=== PATIENT | male | born 1955 | race Hispanic/Latino ===

== ENCOUNTER 2017-01-04 15:43 | Inpatient (IN) | payer OTHER ==
[2017-01-04 15:50] LABS: Hematocrit 46.8 % (35.5-45.6); Hemoglobin 15.9 gm/dl (11.8-15.2); Mean Corpuscular HGB Conc 34 % (32-34); Mean Corpuscular Hemoglobin 31 pg (28-32); Mean Corpuscular Volume 90 fl (84-94); Platelet Count 146 K/mm3 (140-440); Red Cell Distribution Width 13.5 % (13.2-15.2); White Blood Count 10.2 K/mm3 (4.5-11.0)
--- NOTE | 2017-01-04 15:50 | Emergency Department Report ---
ED Neuro Deficit HPI - General Chief Complaint: Neuro Symptoms/Deficit Stated Complaint: POSS CVA Time Seen by Provider: 01/04/17 15:49 Source: patient, EMS (ems notes not available at time of chart dictation) Limitations: Physical Limitation - History of Present Illness Initial Comments: This is a 61-year-old male. He is previously unknown to me. The patient reports a past medical history of "blood clots." The patient is brought to the hospital by EMS as a possible code stroke. Patient complains of slurred speech , left-sided facial droop. The patient indicated the symptoms started 2 days ago. He indicates that they were intermittent. He then indicates that the symptoms became constant at 11:00 AM. He denies headache, neck pain, chest pain , abdominal pain, shortness of breath, irritative and obstructive urinary symptoms. The patient presented to the ER at 345, within 4.5 hours after symptom onset. Therefore, he was not a TPA candidate. An emergent CT scan of the brain was negative for acute findings. The patient had an emergent CT angiogram of the head and neck, and this was transmitted to [facility] PACs, and interpreted by their stroke neurologist, Dr. Joaquin Orozco. His preliminary interpretation was that the CT scan did not demonstrate any large clot or thrombus, that there may be a right-sided stenosis. He indicated that based on the patient's CAT scan findings, there is no indication to transfer the patient for endovascular intervention. The patient's CT scan is currently pending formal interpretation by radiology, because of inclement weather at this time, there was a power surge, and this resulted in delaying transmission of the CT scan images to the off site radiology interpretation health outreach worker. Consulting neurology recommended aspirin. Patient was found to be in new onset A. fib /flutter which he indicates is new. Case was discussed with the Hospital physician, Dr. Leung, who accepts the patient to his service for presumed stroke and presumed new onset A. fib. -: Sudden, hour(s) Location: left face Presenting Symptoms: Present: Facial Droop/Numbness. Absent: Weak/Paralyzed One Side History of same: Yes Place: home Severity: moderate Quality: weak Improves With: none Worsens With: none On Anticoagulants: No Context: sudden onset Associated Symptoms: denies: confusion, chest pain, cough, diaphoresis, loss of appetite, malise, nausea/vomiting, vertigo, shortness of breath, syncope, weakness - Related Data Home Medications: Home Medications Medication Instructions Recorded Confirmed Last Taken No Known Home Medications [No 01/04/17 01/04/17 Unknown Reported Home Medications] Allergies/Adverse Reactions: Allergies Allergy/AdvReac Type Severity Reaction Status Date / Time No Known Allergies Allergy Verified 01/04/17 15:43 ED Review of Systems ROS: Stated complaint: POSS CVA Other details as noted in HPI Constitutional: denies: fever, malaise Eyes: denies: vision change ENT: denies: epistaxis Respiratory: denies: cough Cardiovascular: denies: chest pain Gastrointestinal: denies: abdominal pain Genitourinary: denies: dysuria Musculoskeletal: denies: back pain Skin: denies: lesions Neurological: weakness ED Past Medical Hx - Medications Home Medications: Home Medications Medication Instructions Recorded Confirmed Last Taken Type No Known Home Medications [No 01/04/17 01/04/17 Unknown History Reported Home Medications] ED Neuro Physical Exam - General General appearance: alert, in no apparent distress Suspected Stroke: Yes - Head Head exam: Present: atraumatic, normocephalic - Eye Eye exam: Present: normal appearance, EOMI, other (visual acuity intact to finger counting, color perception, reading at a close distance). Absent: nystagmus - ENT ENT exam: Present: normal exam, normal orophraynx, mucous membranes moist, normal external ear exam, other (there is a left-sided facial droop noted) - Neck Neck exam: Present: normal inspection, full ROM - Respiratory Respiratory exam: Present: normal lung sounds bilaterally. Absent: respiratory distress, wheezes, rales, rhonchi, stridor, chest wall tenderness - Cardiovascular Cardiovascular Exam: Present: regular rate, irregular rhythm, normal heart sounds. Absent: systolic murmur, diastolic murmur, rubs, gallop - GI/Abdominal GI/Abdominal exam: Present: soft, normal bowel sounds. Absent: distended, tenderness, guarding, rebound, rigid, pulsatile mass - Rectal Rectal exam: Present: deferred - Extremities Exam Extremities exam: Present: normal inspection, full ROM, normal capillary refill. Absent: pedal edema, joint swelling, calf tenderness - Back Exam Back exam: Present: normal inspection, full ROM. Absent: tenderness, CVA tenderness (R), CVA tenderness (L), muscle spasm, paraspinal tenderness, vertebral tenderness - Neurological Exam Neurological exam: Present: alert, oriented X3, other (there is left-sided facial droop. Facial sensation is intact to light touch in the bilateral V1, V2 , V3 distribution. Extraocular movements are intact bilaterally. The tongue deviates to the left.). Absent: motor sensory deficit (there is 5 out of 5 strength in bilateral upper and lower extremity is. Sensation is intact to light touch in the bilateral upper and lower extremities.) - NIHSS Assessment Interval: Baseline 1a. Level of Consciousness: alert 1b. LOC Questions: answers correctly 1c. LOC Commands: performs tasks correctly 2. Best Gaze: normal 3. Visual: no visual loss 4. Facial Palsy: partial paralysis 5b. Motor Arm Right: no drift 5a. Motor Arm Left: no drift 6a. Motor Leg Left: no drift 6b. Motor Leg Right: no drift 7. Limb Ataxia: absent 8. Sensory: normal 9. Best Language: no aphasia 10. Dysarthria: normal 11. Extinction/Inattention: no abnormality Total Score: 2 Stroke Severity: Minor Stroke - Psychiatric Psychiatric exam: Present: normal affect, normal mood - Skin Skin exam: Present: warm, dry, intact, normal color. Absent: rash ED Course Vital Signs 01/04/17 01/04/17 01/04/17 15:43 16:56 18:40 Temperature 98.8 F 97.6 F Pulse Rate 90 80 91 H Respiratory 16 20 20 Rate Blood Pressure 156/94 Blood Pressure 146/87 143/98 [Right] O2 Sat by Pulse 96 100 96 Oximetry - Reevaluation(s) Reevaluation #1: 01/04/17 19:26 CT angiogram of the brain and neck negative. - Lab Data Result diagrams: 01/04/17 15:40 01/04/17 15:40 Lab Results 01/04/17 01/04/17 01/04/17 Range/Units 15:40 15:40 15:40 WBC 10.2 (4.5-11.0) K/mm3 RBC 5.20 H (3.65-5.03) M/mm3 Hgb 15.9 H (11.8-15.2) gm/dl Hct 46.8 H (35.5-45.6) % MCV 90 (84-94) fl MCH 31 (28-32) pg MCHC 34 (32-34) % RDW 13.5 (13.2-15.2) % Plt Count 146 (140-440) K/mm3 Add Manual Diff Complete Total Counted 100 Seg Neuts % (Manual) 66.0 (40.0-70.0) % Band Neutrophils % 6.0 % Lymphocytes % (Manual) 19.0 (13.4-35.0) % Reactive Lymphs % (Man) 1.0 % Monocytes % (Manual) 7.0 (0.0-7.3) % Eosinophils % (Manual) 1.0 (0.0-4.3) % Basophils % (Manual) 0 (0.0-1.8) % Metamyelocytes % 0 % Myelocytes % 0 % Promyelocytes % 0 % Blast Cells % 0 % Nucleated RBC % Not Reportable Seg Neutrophils # Man 6.7 (1.8-7.7) K/mm3 Band Neutrophils # 0.6 K/mm3 Lymphocytes # (Manual) 1.9 (1.2-5.4) K/mm3 Abs React Lymphs (Man) 0.1 K/mm3 Monocytes # (Manual) 0.7 (0.0-0.8) K/mm3 Eosinophils # (Manual) 0.1 (0.0-0.4) K/mm3 Basophils # (Manual) 0.0 (0.0-0.1) K/mm3 Metamyelocytes # 0.0 K/mm3 Myelocytes # 0.0 K/mm3 Promyelocytes # 0.0 K/mm3 Blast Cells # 0.0 K/mm3 WBC Morphology Not Reportable Hypersegmented Neuts Not Reportable Hyposegmented Neuts Not Reportable Hypogranular Neuts Not Reportable Smudge Cells Not Reportable Toxic Granulation Not Reportable Toxic Vacuolation Not Reportable Dohle Bodies Not Reportable Pelger-Huet Anomaly Not Reportable Aleksandar Rods Not Reportable Platelet Estimate Consistent w auto Clumped Platelets Not Reportable Plt Clumps, EDTA Not Reportable Large Platelets Not Reportable Giant Platelets Not Reportable Platelet Satelliting Not Reportable Plt Morphology Comment Not Reportable RBC Morphology Normal Dimorphic RBCs Not Reportable Polychromasia Not Reportable Hypochromasia Not Reportable Poikilocytosis Not Reportable Anisocytosis Not Reportable Microcytosis Not Reportable Macrocytosis Not Reportable Spherocytes Not Reportable Pappenheimer Bodies Not Reportable Sickle Cells Not Reportable Target Cells Not Reportable Tear Drop Cells Not Reportable Ovalocytes Not Reportable Helmet Cells Not Reportable Mccain-Hyde Bodies Not Reportable [place] Rings Not Reportable Tess Cells Not Reportable Bite Cells Not Reportable Crenated Cell Not Reportable Elliptocytes Not Reportable Acanthocytes (Spur) Not Reportable Rouleaux Not Reportable Hemoglobin C Crystals Not Reportable Schistocytes Not Reportable Malaria parasites Not Reportable [place] Bodies Not Reportable Hem Pathologist Commnt No PT 13.7 (12.2-14.9) Sec. INR 1.00 (0.87-1.13) APTT 26.4 (24.2-36.6) Sec. Thrombin Time (15.1-19.6) Sec. Sodium 138 (137-145) mmol/L Potassium 3.9 (3.6-5.0) mmol/L Chloride 98.8 (98-107) mmol/L Carbon Dioxide 26 (22-30) mmol/L Anion Gap 17 mmol/L BUN 16 (9-20) mg/dL Creatinine 0.7 L (0.8-1.5) mg/dL Estimated GFR > 60 ml/min BUN/Creatinine Ratio 22.85 % Glucose 99 (75-100) mg/dL POC Glucose (70-105) Calcium 9.0 (8.4-10.2) mg/dL Troponin T < 0.010 (0.00-0.029) ng/mL 01/04/17 01/04/17 Range/Units 15:40 15:42 WBC (4.5-11.0) K/mm3 RBC (3.65-5.03) M/mm3 Hgb (11.8-15.2) gm/dl Hct (35.5-45.6) % MCV (84-94) fl MCH (28-32) pg MCHC (32-34) % RDW (13.2-15.2) % Plt Count (140-440) K/mm3 Add Manual Diff Total Counted Seg Neuts % (Manual) (40.0-70.0) % Band Neutrophils % % Lymphocytes % (Manual) (13.4-35.0) % Reactive Lymphs % (Man) % Monocytes % (Manual) (0.0-7.3) % Eosinophils % (Manual) (0.0-4.3) % Basophils % (Manual) (0.0-1.8) % Metamyelocytes % % Myelocytes % % Promyelocytes % % Blast Cells % % Nucleated RBC % Seg Neutrophils # Man (1.8-7.7) K/mm3 Band Neutrophils # K/mm3 Lymphocytes # (Manual) (1.2-5.4) K/mm3 Abs React Lymphs (Man) K/mm3 Monocytes # (Manual) (0.0-0.8) K/mm3 Eosinophils # (Manual) (0.0-0.4) K/mm3 Basophils # (Manual) (0.0-0.1) K/mm3 Metamyelocytes # K/mm3 Myelocytes # K/mm3 Promyelocytes # K/mm3 Blast Cells # K/mm3 WBC Morphology Hypersegmented Neuts Hyposegmented Neuts Hypogranular Neuts Smudge Cells Toxic Granulation Toxic Vacuolation Dohle Bodies Pelger-Huet Anomaly Aleksandar Rods Platelet Estimate Clumped Platelets Plt Clumps, EDTA Large Platelets Giant Platelets Platelet Satelliting Plt Morphology Comment RBC Morphology Dimorphic RBCs Polychromasia Hypochromasia Poikilocytosis Anisocytosis Microcytosis Macrocytosis Spherocytes Pappenheimer Bodies Sickle Cells Target Cells Tear Drop Cells Ovalocytes Helmet Cells Mccain-Hyde Bodies [place] Cells Bite Cells Crenated Cell Elliptocytes Acanthocytes (Spur) Rouleaux Hemoglobin C Crystals Schistocytes Malaria parasites Bentley Bodies Hem Pathologist Commnt PT (12.2-14.9) Sec. INR (0.87-1.13) APTT (24.2-36.6) Sec. Thrombin Time 16.3 (15.1-19.6) Sec. Sodium (137-145) mmol/L Potassium (3.6-5.0) mmol/L Chloride (98-107) mmol/L Carbon Dioxide (22-30) mmol/L Anion Gap mmol/L BUN (9-20) mg/dL Creatinine (0.8-1.5) mg/dL Estimated GFR ml/min BUN/Creatinine Ratio % Glucose (75-100) mg/dL POC Glucose 92 (70-105) Calcium (8.4-10.2) mg/dL Troponin T (0.00-0.029) ng/mL Vital Signs 01/04/17 01/04/17 15:43 16:56 Temperature 98.8 F Pulse Rate 90 80 Respiratory 16 20 Rate Blood Pressure 156/94 Blood Pressure 146/87 [Right] O2 Sat by Pulse 96 100 Oximetry - EKG Data -: EKG Interpreted by Me 01/04/17 18:55 77 bpm, atrial fibrillation, normal axis, QTC 452 ms, abnormal EKG, not morphologically consistent with stemi - Radiology Data Radiology results: pending, report reviewed Noncontrast CT scan of the brain is negative. CT angiogram of the brain and neck are pending Critical care attestation.: If time is entered above; I have spent that time in minutes in the direct care of this critically ill patient, excluding procedure time. ED Disposition Clinical Impression: Atrial fibrillation, CVA (cerebral vascular accident) Disposition: OP ADMIT IP TO THIS HOSP Is pt being admited?: Yes Does the pt Need Aspirin: Yes Condition: Stable Referrals: PRIMARY CARE, [Primary Care Provider] - 3-5 Days
--- NOTE | 2017-01-04 15:59 | Cat Scan Report ---
Cranial CT without contrast. History: Acute stroke protocol. Findings: There is no evidence of acute hemorrhage or infarct. The ventricles are normal in size and contour. The posterior fossa is normal. There are no masses or extra-axial collections. The calvarium is normal. Impression: No acute findings. Comment: These findings were given by telephone to Dr. Levine at 3:50 PM on January 04, 2017.
[2017-01-04 16:02] LABS: Partial Thromboplastin Time 26.4 Sec. (24.2-36.6)
[2017-01-04 16:03] LABS: Anion Gap 17 mmol/L; BUN/Creatinine Ratio 22.85; Blood Urea Nitrogen 16 mg/dL (9-20); Carbon Dioxide 26 mmol/L (22-30); Chloride 98.8 mmol/L (98-107); Glucose 99 mg/dL (75-100); Potassium 3.9 mmol/L (3.6-5.0); Sodium 138 mmol/L (137-145)
[2017-01-04] MEDS ORDERED: NACL 0.9% 250ML 250 ML IV ONE (16:05)
[2017-01-04] MEDS ORDERED: NACL ONE (16:17)
[2017-01-04 17:18] LABS: Basophils % (Manual) 0 % (0.0-1.8); Blastocytes % (Manual) 0 %
[2017-01-04 17:19] LABS: Diff Status Complete; Platelet Estimate Consistent w Auto; RBC Morphology Normal
--- NOTE | 2017-01-04 18:12 | Admit Criteria Form ---
Admission Criteria Documentation: TELEMETRY CARE Telemetry Admission Guidelines (Place 'X' for any and all applicable criteria): Admission to telemetry [A] may be indicated for ANY ONE of the following(1)(2)(3 )(4)(5): [ ]I. Cardiac disease, including ANY ONE of the following (9)(10)(11)(12)(13 ): [ ]a) Postacute AL [ ]b) Low-risk patients with ST-segment elevation AL who have undergone successful percutaneous coronary intervention [ ]c) Unstable angina [ ]d) Suspected AL (until it is ruled out) [ ]e) Post cardiac surgery (first 48 to 72 hours unless complications occur) [ ]f) Acute arrhythmias (including significant tachycardia or bradycardia) [B] [ ]g) Firing of an implantable cardioverter defibrillator [C] [ ]h) Suspected pacemaker or implantable cardioverter defibrillator malfunction (10) [ ]i) New administration or adjustment of an antiarrhythmic drug [D ] [ ]j) Child admitted for acute congestive heart failure [ ]j) Long QT syndrome [ ]k) Advanced heart block (eg, second-degree Mobitz type II, third- degree heart block) [ ]l) Acute myocarditis or pericarditis [ ]m) Short-term (ambulatory or inpatient) monitoring after a cardiac procedure as indicated by ANY ONE of the following [E]: [ ]i) Electrophysiologic studies [ ]ii) Percutaneous coronary intervention with stent placement [ ]iii) Pacemaker placement with cardiac conduction defect [ ]iv) Implantable cardiac defibrillator placement [ ]II. Drug overdose or poisoning with substance that causes arrhythmias or QT prolongation (eg, phenothiazines, sympathomimetic agents, cyclic antidepressants, digitalis, antiarrhythmic drugs)(15) [ ]III. Short-term (ambulatory or inpatient) monitoring after therapeutic or diagnostic procedure requiring conscious sedation or anesthesia (eg, endoscopy, elective cardioversion) [ X]IV. Acute cerebrovascular even[F](18) [ ]V. Massive blood transfusion (eg, at least 10 units of packed red blood cells in 24 hours) [ ]. Variceal bleeding after endoscopy, sclerotherapy, or IV vasopressin [ ]VII. Uncorrected electrolyte abnormalities associated with an increased risk of dangerous arrhythmia [G]; examples include [ ]a) Hyperkalemia with attributable ECG changes [ ]b) Potassium greater than 6.5 mmol/L (mEq/L) in a patient without history of chronic renal disease [ ]c) Prolonged QT attributed to hypokalemia, hypomagnesemia, or hypocalcemia [ ]VIII.Unexplained syncope or other neurologic event suspected of being due to arrhythmia due to a finding that increases risk; examples include(19)(20)(21): [ ]a) High-risk ECG findings (eg, bifascicular block, bradycardia, abnormal QT interval, ventricular pre- excitation) [ ]b) History of previous syncope due to arrhythmia [ ]c) Abnormal ventricular function (eg, reduced ejection fraction ) [ ]d) Exertional or supine syncope [ ]e) Concerning syncope characteristics (eg, sudden loss of consciousness without prodrome) [ ]f) Family history of sudden [ ]g) Use of arrhythmogenic medication [ ]h) Suspected cardiac ischemia [ ]i) Known channelopathy (eg, long QT syndrome, Brugada syndrome, or catecholaminergic paroxysmal ventricular tachycardia) [ ]j) Known structural heart disease (eg, hypertrophic cardiomyopathy , severe valvular disease) [ ]k) Palpitations preceding syncope The original [employer] content created by [employer] has been revised. The portions of the content which have been revised are identified through the use of italic text or in bold, and [employer] has neither reviewed nor approved the modified material. All other unmodified content is copyright [employer]. Please see references footnoted in the original [employer] edition 2016 Admission Criteria Met: Yes
[2017-01-04] MEDS ORDERED: PHENERGAN PR PRN (18:45)
[2017-01-04] MEDS ORDERED: TYLENOL PO PRN (18:45)
[2017-01-04] MEDS ORDERED: MILK OF MAGNESIA PO PRN (18:45)
[2017-01-04] MEDS ORDERED: DULCOLAX PR PRN (18:45)
[2017-01-04] MEDS ORDERED: ZOFRAN IV PRN (18:45)
[2017-01-04] MEDS ORDERED: REGLAN PO PRN (18:45)
[2017-01-04] MEDS ORDERED: MORPHINE IV PRN (18:45)
[2017-01-04] MEDS ORDERED: SODIUM CHLORIDE FLUSH SYRINGE 10 ML IV PRN (18:45)
[2017-01-04] MEDS ORDERED: BABY ASPIRIN PO ONE (18:56)
--- NOTE | 2017-01-04 19:03 | History and Physical Report ---
History of Present Illness Date of examination: 01/04/17 Chief complaint: Left fascial droop History of present illness: 61-year-old male with past medical history significant for PE [20 years ago] presented to the emergency department for the complaints of left fascia droop, drooling for the last 2-3 days. The patient said the pressure droop is on and off, initially get better but since yesterday getting worse and he started to drool when he eats. The patient denied headache, weakness of other parts of his body, seizure-like activities. Patient denied chest pain, fever, chills. While in the emergency department EKG was done and was significant for A. fib which is rate controlled. CT head showed no acute intracranial abnormality. Per Dr wells CTA was done and the image was sent to [facility] and they said the patient is a need endovascular intervention or TPA and they went the patient to be managed here. CT reading by radiologist is pending. REVIEW OF SYSTEMS: GENERAL: no weight change, no fatigue, no fever HEAD: no head ache EYES: no blurry vision, no acute visual loss EARS: no hearing loss, no discharge, no earache NOSE: no stuffiness, no sneezing, no discharge MOUTH, THROAT AND NECK: no bleeding gums, no sore throat, no swollen neck CARDIAC: no palpitations, no dyspnea on exertion, no orthopnea, no PND, no edema , no chest pain RESPIRATORY: no shortness of breath, no wheeze, no cough, no sputum, no hemoptysis, no asthma GI: no decreased appetite, no nausea, no vomiting, no dysphagia, no diarrhea, no constipation, no abdominal pain URINARY: no change in frequency, no urgency, no polyuria, no hematuria, no incontinence MUSCULOSKELETAL: no muscle weakness, no pain, no joint stiffness NEUROLOGIC: no loss of sensation/numbness, no tingling, no tremors HEMATOLOGIC: no anemia, no easy bruising SKIN: no rashes ENDOCRINE: no heat/cold intolerance, no polyuria, no polydipsia, no thyroid problems, no diabetes PSYCHIATRIC: no anxiety, no depression, no suicidal ideations Past History Past Medical History: pulmonary embolism Past Surgical History: Other (Shaq filter Placement) Social history: smoking (Smokes cigarettes one and half pack a day), full code. denies: alcohol abuse, prescription drug abuse, IV drug use Family history: no significant family history Medications and Allergies Allergies Allergy/AdvReac Type Severity Reaction Status Date / Time No Known Allergies Allergy Verified 01/04/17 15:43 Home Medications Medication Instructions Recorded Confirmed Last Taken Type No Known Home Medications [No 01/04/17 01/04/17 Unknown History Reported Home Medications] Active Meds: Active Medications Acetaminophen (Tylenol) 650 mg PO Q4H PRN PRN Reason: Pain, Mild (1-3) Aspirin (Aspirin) 325 mg PO QDAY [facility] Bisacodyl (Dulcolax) 10 mg MS QDAY PRN PRN Reason: Constipation Docusate Sodium (Colace) 100 mg PO BID [facility] Famotidine (Pepcid) 20 mg PO BID [facility] Sodium Chloride (Nacl 0.9% 1000 Ml) 1,000 mls @ 100 mls/hr IV DIRECT [facility] Magnesium Hydroxide (Milk Of Magnesia) 30 ml PO Q4H PRN PRN Reason: Constipation Metoclopramide HCl (Reglan) 10 mg PO Q6H PRN PRN Reason: Nausea And Vomiting Morphine Sulfate (Morphine) 2 mg IV Q4H PRN PRN Reason: Pain, Moderate (4-6) Ondansetron HCl (Zofran) 4 mg IV Q8H PRN PRN Reason: N/V unrelieved by Reglan Promethazine HCl (Phenergan) 25 mg MS Q6H PRN PRN Reason: Nausea And Vomiting Simvastatin (Zocor) 20 mg PO QHS [facility] Sodium Chloride (Sodium Chloride Flush Syringe 10 Ml) 10 ml IV PRN PRN PRN Reason: LINE FLUSH Exam - Physical Exam Narrative exam: Not in cardiopulmonary distress. The patient appeared well nourished and normally developed. Vital signs as documented. Head exam is unremarkable. No scleral icterus . Neck is without jugular venous distension, thyromegaly, or carotid bruits. Lungs are clear to auscultation. Cardiac exam reveals regular rate and Rhythm. First and second heart sounds normal. No murmurs, rubs or gallops. Abdominal exam reveals normal bowel sounds, no masses, no organomegaly and no aortic enlargement. Extremities are nonedematous and both femoral and pedal pulses are normal. RECREATIONAL THERAPY AIDE: Alert and oriented 3. left sided facial droop. - Constitutional Vitals: Temp Pulse Resp BP Pulse Ox 98.8 F 80 20 146/87 100 01/04/17 15:43 01/04/17 16:56 01/04/17 16:56 01/04/17 16:56 01/04/17 16:56 Results - Labs CBC & Chem 7: 01/04/17 15:40 01/04/17 15:40 Labs: Laboratory Last Values WBC 10.2 K/mm3 (4.5-11.0) 01/04/17 15:40 RBC 5.20 M/mm3 (3.65-5.03) H 01/04/17 15:40 Hgb 15.9 gm/dl (11.8-15.2) H 01/04/17 15:40 Hct 46.8 % (35.5-45.6) H 01/04/17 15:40 MCV 90 fl (84-94) 01/04/17 15:40 MCH 31 pg (28-32) 01/04/17 15:40 MCHC 34 % (32-34) 01/04/17 15:40 RDW 13.5 % (13.2-15.2) 01/04/17 15:40 Plt Count 146 K/mm3 (140-440) 01/04/17 15:40 Add Manual Diff Complete 01/04/17 15:40 Total Counted 100 01/04/17 15:40 Seg Neuts % (Manual) 66.0 % (40.0-70.0) 01/04/17 15:40 Band Neutrophils % 6.0 % 01/04/17 15:40 Lymphocytes % (Manual) 19.0 % (13.4-35.0) 01/04/17 15:40 Reactive Lymphs % (Man) 1.0 % 01/04/17 15:40 Monocytes % (Manual) 7.0 % (0.0-7.3) 01/04/17 15:40 Eosinophils % (Manual) 1.0 % (0.0-4.3) 01/04/17 15:40 Basophils % (Manual) 0 % (0.0-1.8) 01/04/17 15:40 Metamyelocytes % 0 % 01/04/17 15:40 Myelocytes % 0 % 01/04/17 15:40 Promyelocytes % 0 % 01/04/17 15:40 Blast Cells % 0 % 01/04/17 15:40 Nucleated RBC % Not Reportable 01/04/17 15:40 Seg Neutrophils # Man 6.7 K/mm3 (1.8-7.7) 01/04/17 15:40 Band Neutrophils # 0.6 K/mm3 01/04/17 15:40 Lymphocytes # (Manual) 1.9 K/mm3 (1.2-5.4) 01/04/17 15:40 Abs React Lymphs (Man) 0.1 K/mm3 01/04/17 15:40 Monocytes # (Manual) 0.7 K/mm3 (0.0-0.8) 01/04/17 15:40 Eosinophils # (Manual) 0.1 K/mm3 (0.0-0.4) 01/04/17 15:40 Basophils # (Manual) 0.0 K/mm3 (0.0-0.1) 01/04/17 15:40 Metamyelocytes # 0.0 K/mm3 01/04/17 15:40 Myelocytes # 0.0 K/mm3 01/04/17 15:40 Promyelocytes # 0.0 K/mm3 01/04/17 15:40 Blast Cells # 0.0 K/mm3 01/04/17 15:40 WBC Morphology Not Reportable 01/04/17 15:40 Hypersegmented Neuts Not Reportable 01/04/17 15:40 Hyposegmented Neuts Not Reportable 01/04/17 15:40 Hypogranular Neuts Not Reportable 01/04/17 15:40 Smudge Cells Not Reportable 01/04/17 15:40 Toxic Granulation Not Reportable 01/04/17 15:40 Toxic Vacuolation Not Reportable 01/04/17 15:40 Dohle Bodies Not Reportable 01/04/17 15:40 Pelger-Huet Anomaly Not Reportable 01/04/17 15:40 Aleksandar Rods Not Reportable 01/04/17 15:40 Platelet Estimate Consistent w auto 01/04/17 15:40 Clumped Platelets Not Reportable 01/04/17 15:40 Plt Clumps, EDTA Not Reportable 01/04/17 15:40 Large Platelets Not Reportable 01/04/17 15:40 Giant Platelets Not Reportable 01/04/17 15:40 Platelet Satelliting Not Reportable 01/04/17 15:40 Plt Morphology Comment Not Reportable 01/04/17 15:40 RBC Morphology Normal 01/04/17 15:40 Dimorphic RBCs Not Reportable 01/04/17 15:40 Polychromasia Not Reportable 01/04/17 15:40 Hypochromasia Not Reportable 01/04/17 15:40 Poikilocytosis Not Reportable 01/04/17 15:40 Anisocytosis Not Reportable 01/04/17 15:40 Microcytosis Not Reportable 01/04/17 15:40 Macrocytosis Not Reportable 01/04/17 15:40 Spherocytes Not Reportable 01/04/17 15:40 Pappenheimer Bodies Not Reportable 01/04/17 15:40 Sickle Cells Not Reportable 01/04/17 15:40 Target Cells Not Reportable 01/04/17 15:40 Tear Drop Cells Not Reportable 01/04/17 15:40 Ovalocytes Not Reportable 01/04/17 15:40 Helmet Cells Not Reportable 01/04/17 15:40 [place] Bodies Not Reportable 01/04/17 15:40 [place] Rings Not Reportable 01/04/17 15:40 [place] Cells Not Reportable 01/04/17 15:40 Bite Cells Not Reportable 01/04/17 15:40 Crenated Cell Not Reportable 01/04/17 15:40 Elliptocytes Not Reportable 01/04/17 15:40 Acanthocytes (Spur) Not Reportable 01/04/17 15:40 Rouleaux Not Reportable 01/04/17 15:40 Hemoglobin C Crystals Not Reportable 01/04/17 15:40 Schistocytes Not Reportable 01/04/17 15:40 Malaria parasites Not Reportable 01/04/17 15:40 [place] Bodies Not Reportable 01/04/17 15:40 Hem Pathologist Commnt No 01/04/17 15:40 PT 13.7 Sec. (12.2-14.9) 01/04/17 15:40 INR 1.00 (0.87-1.13) 01/04/17 15:40 APTT 26.4 Sec. (24.2-36.6) 01/04/17 15:40 Thrombin Time 16.3 Sec. (15.1-19.6) 01/04/17 15:40 Sodium 138 mmol/L (137-145) 01/04/17 15:40 Potassium 3.9 mmol/L (3.6-5.0) 01/04/17 15:40 Chloride 98.8 mmol/L (98-107) 01/04/17 15:40 Carbon Dioxide 26 mmol/L (22-30) 01/04/17 15:40 Anion Gap 17 mmol/L 01/04/17 15:40 BUN 16 mg/dL (9-20) 01/04/17 15:40 Creatinine 0.7 mg/dL (0.8-1.5) L 01/04/17 15:40 Estimated GFR > 60 ml/min 01/04/17 15:40 BUN/Creatinine Ratio 22.85 % 01/04/17 15:40 Glucose 99 mg/dL (75-100) 01/04/17 15:40 POC Glucose 92 (70-105) 01/04/17 15:42 Calcium 9.0 mg/dL (8.4-10.2) 01/04/17 15:40 Troponin T < 0.010 ng/mL (0.00-0.029) 01/04/17 15:40 Assessment and Plan Assessment and plan: Acute CVA with left fascia droop - Patient came to the ED after window period for TPA passed - The patient had an emergent CT angiogram of the head and neck, and this was transmitted to [facility] PACs, and interpreted by their stroke neurologist , Dr. Joaquin Orozco. His preliminary interpretation was that the CT scan did not demonstrate any large clot or thrombus, thet there may be a right sided stenoses. He indicated that based on the patient's CAT scan findings there is no indication to transfer the patient for endovascular intervention. - MRI/MRA, carotid Doppler, echo pending, CTA reading is pending by radiologist - Patient is on aspirin, speech and swallow evaluation - Neurology consult New onset A. fib -rate Controlled -Patient will be on therapeutic Lovenox -Cardiology consult placed History of PE - Patient didn't take any anti-cognition for the last 10 years - Patient has Shaq filter placed 20 years ago DVT prophylaxis -Therapeutic Lovenox Disposition - Admit to telemetry floor
--- NOTE | 2017-01-04 19:04 | Cat Scan Report ---
FINAL REPORT PROCEDURE: CT ANGIO HEAD TECHNIQUE: Computerized tomographic angiography of the head was performed after the IV injection of iodinated nonionic contrast including image processing. The image data was postprocessed using 2-dimensional multiplanar reformatted (MPR) and 3-dimensional (MIP and/or volume rendered) techniques. HISTORY: cva COMPARISON: No prior studies are available for comparison. FINDINGS: Cerebrum: No evidence of hemorrhage, acute ischemia or mass. Cerebellum: No evidence of hemorrhage, acute ischemia or mass. Subarachnoid spaces and ventricles: Normal. Intracranial vessels: Carotid siphon: Normal. Anterior cerebral: Normal. Middle cerebral: Normal. Posterior cerebral:Normal. Vertebral arteries including basilar: Normal. Aneurysms: None. Dural sinuses: Normal. IMPRESSION: Normal Examination.
--- NOTE | 2017-01-04 19:09 | Cat Scan Report ---
FINAL REPORT PROCEDURE: CT ANGIO NECK TECHNIQUE: Computerized tomographic angiography of the neck was performed after the IV injection of iodinated nonionic contrast including image processing. The image data was postprocessed using 2-dimensional multiplanar reformatted (MPR) and 3-dimensional (MIP and/or volume rendered) techniques. HISTORY: cva COMPARISON: No prior studies are available for comparison. Note: Assessment of carotid artery stenosis is based on measurement of the distal internal carotid artery diameter as the denominator for stenosis calculations and the [place] Symptomatic Carotid Endarterectomy Trial (NASCET) stenosis criteria . CPT 3100F FINDINGS: Sinuses: There is partial opacification of the right maxillary sinus.. Non vascular cervical structures: No significant abnormality . Aortic arch: Normal . Right carotid artery: Normal . Left carotid artery: Normal . Vertebral arteries: The right vertebral artery is dominant.. IMPRESSION: Normal Examination
[2017-01-04] MEDS ORDERED: BABY ASPIRIN ONE (20:42)
[2017-01-04] MEDS ORDERED: LOVENOX SUB-Q SCH (22:00)
[2017-01-04] MEDS: PEPCID PO SCH (22:50)
[2017-01-04] MEDS: COLACE PO SCH (22:50)
[2017-01-04] MEDS: ZOCOR PO SCH (22:50)
[2017-01-04] MEDS: LOVENOX SUB-Q SCH (23:38)
[2017-01-04] MEDS: NACL 0.9% 1000 ML 1,000 ML IV SCH (23:39)
--- NOTE | 2017-01-05 11:10 | Consultation ---
History of Present Illness Consult date: 01/05/17 Requesting physician: JUAN ESPOSITO Consult reason: atrial fibrillation History of present illness: Pt is a 61 YO male with a past medical history significant for RLE DVT & PE s/p IVC filter (15 years ago in [place]) and tobacco use. He is previously unknown to our practice. He presented with c/o intermittent left-sided facial droop, drooling, and difficulty speaking for the last 2-3 days. He denies any chest pain, palpitations, SOB, n/v, diaphoresis, dizziness, or syncope. Admission head CT showed NAF; head MRA shows focal occlusion or partial thrombosis within the right M2 segment. Admission EKG showed AFib with CVR and thus cardiology has been consulted. Pt denies any prior history of cardiac issues or cardiac arrhythmias. Past History Past Medical History: DVT, pulmonary embolism Past Surgical History: Other ([place] filter Placement) Social history: smoking (Smokes cigarettes one and half pack a day), full code. denies: alcohol abuse, prescription drug abuse, IV drug use Family history: no significant family history Medications and Allergies Allergies Allergy/AdvReac Type Severity Reaction Status Date / Time No Known Allergies Allergy Verified 01/04/17 15:43 Home Medications Medication Instructions Recorded Confirmed Last Taken Type No Known Home Medications [No 01/04/17 01/04/17 Unknown History Reported Home Medications] Active Meds: Active Medications Acetaminophen (Tylenol) 650 mg PO Q4H PRN PRN Reason: Pain, Mild (1-3) Aspirin (Aspirin) 325 mg PO QDAY [facility] Bisacodyl (Dulcolax) 10 mg NE QDAY PRN PRN Reason: Constipation Docusate Sodium (Colace) 100 mg PO BID [facility] Last Admin: 01/04/17 22:50 Dose: 100 mg Enoxaparin Sodium (Lovenox) 110 mg 1 mg/kg (110 mg) SUB-Q Q12HR [facility] Last Admin: 01/04/17 23:38 Dose: 110 mg Famotidine (Pepcid) 20 mg PO BID [facility] Last Admin: 01/04/17 22:50 Dose: 20 mg Sodium Chloride (Nacl 0.9% 1000 Ml) 1,000 mls @ 100 mls/hr IV DIRECT [facility] Last Admin: 01/04/17 23:39 Dose: 100 mls/hr Magnesium Hydroxide (Milk Of Magnesia) 30 ml PO Q4H PRN PRN Reason: Constipation Metoclopramide HCl (Reglan) 10 mg PO Q6H PRN PRN Reason: Nausea And Vomiting Morphine Sulfate (Morphine) 2 mg IV Q4H PRN PRN Reason: Pain, Moderate (4-6) Nicotine (Habitrol) 14 mg TD QDAY [facility] Ondansetron HCl (Zofran) 4 mg IV Q8H PRN PRN Reason: N/V unrelieved by Reglan Promethazine HCl (Phenergan) 25 mg NE Q6H PRN PRN Reason: Nausea And Vomiting Simvastatin (Zocor) 20 mg PO QHS [facility] Last Admin: 01/04/17 22:50 Dose: 20 mg Sodium Chloride (Sodium Chloride Flush Syringe 10 Ml) 10 ml IV PRN PRN PRN Reason: LINE FLUSH Review of Systems Constitutional: no weight loss, no weight gain, no fever, no chills, no sweats Ears, nose, mouth and throat: no ear pain, no nose pain, no sinus pressure, no sinus pain Cardiovascular: no chest pain, no orthopnea, no palpitations, no rapid/ irregular heart beat, no edema, no syncope, no lightheadedness, no shortness of breath, no dyspnea on exertion, no high blood pressure, no leg edema, no decreased exercise tolerance Respiratory: no cough, no shortness of breath, no dyspnea on exertion, no congestion, no wheezing, no pain on inspiration Gastrointestinal: no abdominal pain, no nausea, no vomiting, no diarrhea, no constipation, no change in bowel habits Genitourinary Male: no dysuria, no hematuria, no flank pain, no discharge, no urinary frequency, no urinary hesitancy Musculoskeletal: no neck stiffness, no neck pain, no shooting arm pain, no arm numbness/tingling, no low back pain, no shooting leg pain, no leg numbness/ tingling, no redness of joints Integumentary: no rash, no pruritis, no redness, no sores, no wounds Neurological: aphasia, change in speech, other (drooling; left sided facial drooping ), no headaches, no confusion, no memory loss, no gait dysfunction Psychiatric: no anxiety, no memory loss Endocrine: no cold intolerance, no heat intolerance Hematologic/Lymphatic: no easy bruising, no easy bleeding, no lymphadenopathy Allergic/Immunologic: no urticaria, no wheezing, no persistent infections Physical Examination Vital Signs Temp Pulse Resp BP Pulse Ox 98.8 F 90 16 156/94 96 01/04/17 15:43 01/04/17 15:43 01/04/17 15:43 01/04/17 15:43 01/04/17 15:43 General appearance: no acute distress HEENT: Positive: PERRL, Normocephaly, Mucus Membranes Moist Neck: Positive: neck supple, trachea midline Cardiac: Positive: Reg Rate and Rhythm, S1/S2 Lungs: Positive: Normal Exam, clear to auscultation, Normal Breath Sounds Neuro: Positive: Grossly Intact, Cranial Nerve 2-12 Intact Abdomen: Positive: Unremarkable, Soft, Active Bowel Sounds. Negative: Tender Skin: Positive: Clear. Negative: Rash, Wound Musculoskeletal: No Fluid Collection, No Pain, Normal Range of Motion Extremities: Present: upper extr. pulses, lower extr. pulses. Absent: edema Results 01/04/17 15:40 01/04/17 15:40 Lipids 01/05/17 Range/Units 06:15 Triglycerides 168 H (2-149) mg/dL Cholesterol 183 (50-199) mg/dL HDL Cholesterol 36 L (40-59) mg/dL Cholesterol/HDL Ratio 5.08 % - Imaging and Cardiology Echo: pending EKG: report reviewed, image reviewed EKG interpretations - Telemetry EKG Rhythm: Atrial Fibrillation - EKG Supraventricular dysrhythmia: atrial fibrillation Assessment and Plan Assessment: Atrial fibrillation with CVR - new onset. Acute CVA - ? cardioembolic source; head CT with NAF; head MRA shows focal occlusion or partial thrombosis within the right M2 segment H/o DVT and PE, s/p IVC filter placement Dyslipidemia / hypertriglyceridemia Tobacco use - cessation encouraged Plan: Obtain echo. Pt with current CHADS score of 3 (HTN and CVA) and thus systemic anticoagulation in regards to atrial fibrillation is indicated at this time. Continue anticoagulation with full dosage BID lovenox and plan to transition to long-term OAC prior to discharge. Initiate Lopressor, 25mg PO BID. Cont ASA and statin per primary. Await neurology consultation. Assessment and plan reviewed with pt at bedside. The patient has been seen in conjunction with Dr. Tavarez who agrees with the assessment and plan of care.
--- NOTE | 2017-01-05 12:24 | Magnetic Resonance Report ---
MRI OF THE BRAIN WITHOUT CONTRAST: HISTORY: Stroke PROCEDURE: Multiplanar, multisequence MR imaging of the brain without IV contrast was performed. FINDINGS: Compared to the CT head dated 01/04/17. Diffusion images demonstrate multiple small areas of diffusion restriction in the right frontal lobe and superior right temporal lobe. The largest area of diffusion restriction measures 2.5 x 1.2 cm in the right smith radiata. Multiple smaller areas of cortical diffusion restriction are noted in the posterior right frontal and superior right temporal cortices. There is also a 5 mm focus of diffusion restriction in the inferior left cerebellar hemisphere on diffusion image 11. There is no evidence for hemorrhage, mass or extra-axial fluid collection. Mild cortical volume loss and chronic periventricular white matter changes are noted and appear appropriate for this persons age. A subcentimeter chronic focal infarct in the right inferior cerebellar hemisphere is noted. No additional chronic infarct. The midline structures are central. The basal cisterns are patent. Normal ventricular size. The orbital cavities and sella turcica demonstrate no abnormality. 2 cm mucous retention cyst is noted in the right maxillary sinus. The remaining sinuses and mastoid air cells are clear. IMPRESSION: There are multiple rather small areas of diffusion restriction in the right posterior frontal lobe and superior right temporal lobe within the right MCA distribution consistent with acute to subacute ischemia. 5 mm focus of acute to subacute ischemia in the left cerebellar hemisphere. Chronic focal infarct in the right cerebellar hemisphere. Age appropriate volume loss and chronic white matter changes.
--- NOTE | 2017-01-05 12:29 | Magnetic Resonance Report ---
MRA HEAD WITHOUT CONTRAST HISTORY: Stroke. [id number] imaging with MIP reformations of the algaaciq of [place] is submitted. A focal area of decreased endovascular signal is identified within the right M2 segment of the right MCA. This is after the trifurcation of the right MCA within the right sylvian fissure. This is best demonstrated on diffusion image 65. This appears to represent a focal occlusion or partial thrombosis. In retrospect, I believe I see this finding on the CTA head performed 01/04/17. The remaining arterial structures in the anterior circulation are widely patent. There are large bilateral posterior communicating arteries. The vertebrobasilar system is small in caliber but is grossly patent. The right vertebral artery is dominant. No aneurysm is visualized. IMPRESSION: Focal occlusion or partial thrombosis within the right M2 segment as described.
[2017-01-05] MEDS: HABITROL TD SCH (12:40)
[2017-01-05] MEDS: LOVENOX SUB-Q SCH (12:41)
[2017-01-05] MEDS: ASPIRIN PO SCH (12:41)
[2017-01-05] MEDS: COLACE PO SCH ×2 (12:43→21:38)
[2017-01-05] MEDS: PEPCID PO SCH ×2 (12:44→21:46)
--- NOTE | 2017-01-05 13:14 | Consultation ---
History of Present Illness Consult date: 01/05/17 Requesting physician: JUAN ESPOSITO Reason for Consult: stroke Chief complaint: L face weankess/slurred speech History of present illness: 61 YO M hx DVT/PE Tob abuse p/w acute slurred speech and L facial droop on 01/03 @ 8 Am. Sx are constant. There are no clear aggravating, relieving or temporal factors. Severity was enough to cause inability to effectively articulate. Past History Past Medical History: DVT, pulmonary embolism Past Surgical History: Other (Shaq filter Placement) Social history: smoking (Smokes cigarettes one and half pack a day), full code. denies: alcohol abuse, prescription drug abuse, IV drug use Family history: no significant family history Medications and Allergies Allergies Allergy/AdvReac Type Severity Reaction Status Date / Time No Known Allergies Allergy Verified 01/04/17 15:43 Home Medications Medication Instructions Recorded Confirmed Last Taken Type No Known Home Medications [No 01/04/17 01/04/17 Unknown History Reported Home Medications] Active Meds: Active Medications Acetaminophen (Tylenol) 650 mg PO Q4H PRN PRN Reason: Pain, Mild (1-3) Aspirin (Aspirin) 325 mg PO QDAY [facility] Last Admin: 01/05/17 12:41 Dose: 325 mg Bisacodyl (Dulcolax) 10 mg WI QDAY PRN PRN Reason: Constipation Docusate Sodium (Colace) 100 mg PO BID [facility] Last Admin: 01/05/17 12:43 Dose: 100 mg Enoxaparin Sodium (Lovenox) 40 mg SUB-Q BID [facility] Famotidine (Pepcid) 20 mg PO BID [facility] Last Admin: 01/05/17 12:44 Dose: 20 mg Sodium Chloride (Nacl 0.9% 1000 Ml) 1,000 mls @ 100 mls/hr IV DIRECT [facility] Last Admin: 01/04/17 23:39 Dose: 100 mls/hr Magnesium Hydroxide (Milk Of Magnesia) 30 ml PO Q4H PRN PRN Reason: Constipation Metoclopramide HCl (Reglan) 10 mg PO Q6H PRN PRN Reason: Nausea And Vomiting Metoprolol Tartrate (Lopressor) 25 mg PO BID [facility] Morphine Sulfate (Morphine) 2 mg IV Q4H PRN PRN Reason: Pain, Moderate (4-6) Nicotine (Habitrol) 14 mg TD QDAY [facility] Last Admin: 01/05/17 12:40 Dose: 14 mg Ondansetron HCl (Zofran) 4 mg IV Q8H PRN PRN Reason: N/V unrelieved by Reglan Promethazine HCl (Phenergan) 25 mg WI Q6H PRN PRN Reason: Nausea And Vomiting Simvastatin (Zocor) 20 mg PO QHS [facility] Last Admin: 01/04/17 22:50 Dose: 20 mg Sodium Chloride (Sodium Chloride Flush Syringe 10 Ml) 10 ml IV PRN PRN PRN Reason: LINE FLUSH Review of Systems All systems: negative Neurological: change in speech, no paralysis, no weakness, no parathesias, no numbness, no tingling, no headaches, no confusion, no motor disturbance, no sensory deficit, no double vision Physical Examination - Vital Signs Vital Signs: Vital Signs Temp Pulse Resp BP Pulse Ox 98.8 F 90 16 156/94 96 01/04/17 15:43 01/04/17 15:43 01/04/17 15:43 01/04/17 15:43 01/04/17 15:43 - Constitutional General appearance: comfortable, chronically ill - EENT EENT: Present: ATNC, PERRL, mucous membranes moist, hearing intact, vision intact - Respiratory Respiratory: Present: chest non-tender, normal breath sounds, no respiratory distress - Cardiovascular Cardiovascular: Present: regular rate Extremities: Present: no peripheral edema bilatateraly, no clubbing, cyanosis, no inflammation, no ischemia or petechiae - Gastrointestinal Gastrointestinal: Present: normoactive bowel sounds, soft, non-distended - Integumentary Integumentary: Present: normal - Neurologic Cranial nerve examination: PERRL, EOMI, VFF, V1/V2/V3 grossly intact, intact, intact shoulder shrug, Intact Vestibulo-ocular r, intact corneal reflex, facial droop (on L), tongue deviation (to L), normal palatal elevation Speech examination: other (slurred) Sensorimotor examination: intact, pronator drift (on L), hemineglect (to DSS), other (fine motor LUE weakess) Motor examination - right side: 5/5: biceps, triceps, wrist flexion, wrist extension, fine arts packer, hip flexors, knee extensors, dorsiflexion, toe extension (EHL) , plantarflexion Motor examination - left side: 5/5: biceps, triceps, wrist flexion, wrist extension, fine arts packer, hip flexors, knee extensors, dorsiflexion, toe extension (EHL) , plantarflexion Detailed sensory examination: intact, light touch, temperature Reflex and gait examination: Babinski's sign (on L) Reflexes: 1+: ankle, 2+: bicep, knee, tricep - Musculoskeletal Musculoskeletal: Present: no fluid collection, no pain, normal range of motion - Psychiatric Psychiatric: Present: mood/affect appropriate, cooperative Results - Laboratory Findings CBC and BMP: 01/04/17 15:40 01/04/17 15:40 Abnormal Lab Findings: Abnormal Labs 01/05/17 06:15 Triglycerides 168 H HDL Cholesterol 36 L Assessment and Plan 61 YO M hx DVT/PE/Tob abuse not on blood thinner p/w classic R MCA stroke syndrome confirmed on MRI Brain w/ infarct. CTH/ CTA H/N neg. LDL 114. He has also been found to be in new onset AFib for which [facility] is evaluating but syndrome consistent with acute cardioembolic stroke Plan and Recommendation: 1. No indication for pharmacologic thrombolysis with IV tPA or mechanical thrombectomy due to last known normal > 6 hrs from presentation. Current NIHSS 3. 2. Telemetry bed w/ Q4 hour neuro checks 3. TTE 4. Autoregulate SBP to goal 120-160 as pt is outside permissive HTN window. 5. Secondary stroke prevention: ASA 325mg Daily. Transition AP therapy to therapeutic AC approx 7 days after stroke onset i.e. after 01/10 if pt remains clinically stable to minimize risk of ICH. Upgrade to full dose statin therapy ( Crestor 20mg or 40mg OR Lipitor 40mg or 80mg Daily OR Zocor 40mg QDay) for goal LDL < 70. 6. F/E/N: isotonic IVF prn, prn replete, bedside speech/swallow eval prior to PO intake. 7. DVT Prophylaxis 8. Stroke education, PT/OT/Speech Therapy consults, CM evaluation 9. For any changes in neurologic status, pls obtain STAT CTH w/o contrast and call neurology
--- NOTE | 2017-01-05 15:45 | Progress Note ---
Assessment and Plan Acute b/l CVA with left fascia droop - Patient came to the ED after window period for TPA passed - The patient had an emergent CT angiogram of the head and neck, and this was transmitted to [facility] PACs, and interpreted by their stroke neurologist , Dr. Joaquin Orozco. His preliminary interpretation was that the CT scan did not demonstrate any large clot or thrombus - MRI/MRA, carotid Doppler, echo pending, CTA ordered - MRI showed b/l CVA - Patient is on aspirin, statin - Neurology following New onset A. fib -rate Controlled -Patient will be continued on therapeutic Lovenox -Cardiology recommendation appreciated History of PE - Patient didn't take any anti-cognition for the last 10 years - Patient has Shaq filter placed 20 years ago DVT prophylaxis -Therapeutic Lovenox Subjective Date of service: 01/05/17 Interval history: Pt seen and examined denies any neurological deficit now tolerating diet Objective - Constitutional Vitals: Vital Signs - 12hr 01/05/17 01/05/17 01/05/17 05:05 06:29 08:00 Temperature 97.7 F 97.4 F L Pulse Rate 86 Pulse Rate [ 0 L 80 From Monitor] Pulse Rate [ 79 80 Left Radial] Respiratory 20 24 Rate Blood Pressure 146/83 170/97 [Left Radial Artery] O2 Sat by Pulse 93 94 Oximetry 01/05/17 12:47 Temperature 97.4 F L Pulse Rate Pulse Rate [ 70 From Monitor] Pulse Rate [ 70 Left Radial] Respiratory 22 Rate Blood Pressure 163/105 [Left Radial Artery] O2 Sat by Pulse 98 Oximetry General appearance: Present: no acute distress, well-nourished - EENT Eyes: PERRL, EOM intact ENT: hearing intact, clear oral mucosa Ears: bilateral: normal - Neck Neck: supple, normal ROM - Respiratory Respiratory effort: normal Respiratory: bilateral: CTA - Breasts Breasts: normal - Cardiovascular Rhythm: regular Heart Sounds: Present: S1 & S2. Absent: gallop, rub Extremities: pulses intact, No edema, normal color, Full ROM - Gastrointestinal General gastrointestinal: Present: soft, non-tender, non-distended, normal bowel sounds - Integumentary Integumentary: clear, warm, dry - Musculoskeletal Musculoskeletal: 1, strength equal bilaterally - Neurologic Neurologic: moves all extremities, other (left facial droop) - Psychiatric Psychiatric: memory intact, appropriate mood/affect, intact judgment & insight - Labs CBC & Chem 7: 01/04/17 15:40 01/04/17 15:40 Labs: Abnormal lab results 01/05/17 Range/Units 06:15 Triglycerides 168 H (2-149) mg/dL HDL Cholesterol 36 L (40-59) mg/dL - Imaging and cardiology CT Scan - head: report reviewed MRI - head: report reviewed
[2017-01-05] MEDS: LOPRESSOR PO SCH ×2 (19:07→21:43)
[2017-01-05] MEDS: ZOCOR PO SCH (21:46)
[2017-01-05] MEDS ORDERED: LOVENOX SUB-Q SCH ×2 (22:00)
[2017-01-06] MEDS: NACL 0.9% 1000 ML 1,000 ML IV SCH ×2 (10:24→21:54)
[2017-01-06] MEDS: HABITROL TD SCH (10:25)
[2017-01-06] MEDS: ASPIRIN PO SCH (10:25)
[2017-01-06] MEDS: PEPCID PO SCH ×2 (10:25→21:51)
[2017-01-06] MEDS: LOPRESSOR PO SCH (10:25)
[2017-01-06] MEDS: COLACE PO SCH ×2 (10:25→23:00)
[2017-01-06] MEDS ORDERED: LOVENOX SUB-Q SCH (11:00)
--- NOTE | 2017-01-06 12:02 | Progress Note ---
Assessment and Plan Assessment: Transient atrial fibrillation with CVR --> SR Acute CVA HTN H/o DVT and PE, s/p IVC filter placement Dyslipidemia / hypertriglyceridemia Tobacco use - cessation encouraged Plan: Echo reviewed - EF 50 - 55%, trace AR, trace MR, trace TR, no intracardiac shunt. Pt with current CHADS score of 3 (HTN and CVA) and thus systemic anticoagulation in regards to atrial fibrillation is indicated at this time. Indications, potential risks, and benefits of nursing home OAC reviewed with pt and he is agreeable to initiate OAC. D/c lovenox and transition to Eliquis, 5mg PO BID. Cont Lopressor, 25mg PO BID. Cont ASA and statin. Consider ischemic evaluation (lexiscan MPI) as OP for risk stratification. Assessment and plan reviewed with pt at bedside. The patient has been seen in conjunction with Dr. Tavarez who agrees with the assessment and plan of care. Subjective Date of service: 01/06/17 Principal diagnosis: CVA; AFib Interval history: Pt resting comfortably in bed, denies any cardiac complaints. VSS. In SR on tele. Objective Last Vital Signs Temp 97.3 F L 01/06/17 09:00 Pulse 70 01/06/17 10:25 Resp 20 01/06/17 09:00 BP 154/76 01/06/17 10:25 Pulse Ox 95 01/06/17 09:00 - Physical Examination General: Appears Well, No Apparent Distress HEENT: Positive: PERRL, Normocephaly, Mucus Membranes Moist Neck: Positive: neck supple, trachea midline Cardiac: Positive: Reg Rate and Rhythm, S1/S2 Lungs: Positive: clear to auscultation Neuro: Positive: Grossly Intact, Cranial Nerve 2-12 Intact Abdomen: Positive: Unremarkable, Soft, Active Bowel Sounds. Negative: Tender Skin: Positive: Clear. Negative: Rash, Wound Musculoskeletal: No Fluid Collection, No Pain, Normal Range of Motion Extremities: Present: upper extr. pulses, lower extr. pulses. Absent: edema - Imaging and Cardiology EKG: report reviewed, image reviewed Echo: report reviewed - Telemetry EKG Rhythm: Sinus Rhythm
--- NOTE | 2017-01-06 13:26 | Progress Note ---
Assessment and Plan 61 YO M hx DVT/PE/Tob abuse not on blood thinner p/w classic R MCA stroke syndrome confirmed on MRI Brain w/ infarct. CTH/ CTA H/N neg. LDL 114. He has also been found to be in new onset AFib for which [facility] is evaluating but syndrome consistent with acute cardioembolic stroke. TTE w/o thrombus. Plan and Recommendation: 1. No indication for pharmacologic thrombolysis with IV tPA or mechanical thrombectomy due to last known normal > 6 hrs from presentation. Current NIHSS 3. 2. Telemetry bed w/ Q4 hour neuro checks 3. Autoregulate SBP to goal 120-160 as pt is outside permissive HTN window. 4. Secondary stroke prevention: ASA 325mg Daily. Transition AP therapy to therapeutic AC approx 7 days after stroke onset i.e. after 01/10 if pt remains clinically stable to minimize risk of ICH. Upgrade to full dose statin therapy ( Crestor 20mg or 40mg OR Lipitor 40mg or 80mg Daily OR Zocor 40mg QDay) for goal LDL < 70. 5. F/E/N: isotonic IVF prn, prn replete, bedside speech/swallow eval prior to PO intake. 6. DVT Prophylaxis 7. Stroke education, PT/OT/Speech Therapy consults, CM evaluation 8. For any changes in neurologic status, pls obtain STAT CTH w/o contrast and call neurology 9. We can revisit as needed. Subjective Date of service: 01/06/17 Principal diagnosis: CVA; AFib Interval history: stable no new complaints. Objective - Vital Sign Vital Signs - 12hr 01/06/17 01/06/17 01/06/17 04:58 09:00 10:25 Temperature 97.8 F 97.3 F L Pulse Rate 70 Pulse Rate [ 65 70 From Monitor] Pulse Rate [ 65 70 Left Radial] Respiratory 20 20 Rate Blood Pressure 154/76 Blood Pressure 103/63 154/76 [Left Radial Artery] O2 Sat by Pulse 97 95 Oximetry 01/06/17 12:40 Temperature 98.2 F Pulse Rate Pulse Rate [ 59 L From Monitor] Pulse Rate [ 59 L Left Radial] Respiratory 20 Rate Blood Pressure Blood Pressure 153/70 [Left Radial Artery] O2 Sat by Pulse 99 Oximetry - General Apperance Constitutional: comfortable, acutely ill - EENT EENT: ATNC, PERRL, mucous membranes moist, hearing intact, vision intact - Respiratory Respiratory: chest non-tender, normal breath sounds, no respiratory distress - Cardiovascular Cardiovascular: regular rate Extremities: no peripheral edema bilat, no clubbing, cyanosis, no inflammation, no ischemia or petechiae - Gastrointestinal Gastrointestinal: normoactive bowel sounds, soft, non-distended - Integumentary Integumentary: normal - Neurologic Cranial nerve examination: PERRL, EOMI, VFF, V1/V2/V3 grossly intact, intact, intact shoulder shrug, Intact Vestibulo-ocular r, intact corneal reflex, facial droop (on L), tongue deviation (to L) Speech examination: other (slurred) Detailed motor examination: other (fine motor L sided weankess) Motor examination - right side: 5/5: biceps, triceps, wrist flexion, wrist extension, sugar plantation manager, hip flexors, knee extensors, dorsiflexion, toe extension (EHL) , plantarflexion Motor examination - left side: 5/5: biceps, triceps, wrist flexion, wrist extension, sugar plantation manager, hip flexors, knee extensors, dorsiflexion, toe extension (EHL) , plantarflexion Detailed sensory examination: intact, light touch, pain, other (neglect to DSS) Reflex and gait examination: Babinski's sign (on L) Reflexes: 1+: ankle, 2+: bicep, knee, tricep - Musculoskeletal Musculoskeletal: no fluid collection, no pain, normal range of motion - Psychiatric Psychiatric: mood/affect appropriate, cooperative - Laboratory Findings CBC and BMP: 01/04/17 15:40 01/04/17 15:40 Abnormal Lab Findings: Abnormal Labs 01/05/17 06:15 Triglycerides 168 H HDL Cholesterol 36 L
--- NOTE | 2017-01-06 15:55 | Progress Note ---
Assessment and Plan Acute b/l CVA with left fascia droop - Patient came to the ED after window period for TPA passed - MRI/MRA, carotid Doppler, echo, CTA ordered - MRI showed b/l CVA, 2d echo showed preserved EF - Patient is on aspirin, statin - Neurology following - started on eliquis by social group worker New onset Darnell. fib -rate Controlled -Patient will be continued on therapeutic Lovenox -Cardiology recommendation appreciated History of PE - Patient didn't take any anti-coagulation for the last 10 years - Patient has Hitchcock filter placed 20 years ago DVT prophylaxis -on eliquis now Disposition: home likely tomorrow Subjective Date of service: 01/06/17 Principal diagnosis: CVA; AFib Interval history: Pt seen and examined denies chest pain or SOB tolerating diet Objective - Exam Narrative Exam: General appearance: Present: no acute distress, well-nourished - EENT Eyes: PERRL, EOM intact ENT: hearing intact, clear oral mucosa Ears: bilateral: normal - Neck Neck: supple, normal ROM - Respiratory Respiratory effort: normal Respiratory: bilateral: CTA - Breasts Breasts: normal - Cardiovascular Rhythm: regular Heart Sounds: Present: S1 & S2. Absent: gallop, rub Extremities: pulses intact, No edema, normal color, Full ROM - Gastrointestinal General gastrointestinal: Present: soft, non-tender, non-distended, normal bowel sounds - Integumentary Integumentary: clear, warm, dry - Musculoskeletal Musculoskeletal: 1, strength equal bilaterally - Neurologic Neurologic: moves all extremities, other (left facial droop) - Psychiatric Psychiatric: memory intact, appropriate mood/affect, intact judgment & insight - Constitutional Vitals: Vital Signs - 12hr 01/06/17 01/06/17 01/06/17 04:58 09:00 10:25 Temperature 97.8 F 97.3 F L Pulse Rate 70 Pulse Rate [ 65 70 From Monitor] Pulse Rate [ 65 70 Left Radial] Respiratory 20 20 Rate Blood Pressure 154/76 Blood Pressure 103/63 154/76 [Left Radial Artery] O2 Sat by Pulse 97 95 Oximetry 01/06/17 12:40 Temperature 98.2 F Pulse Rate Pulse Rate [ 59 L From Monitor] Pulse Rate [ 59 L Left Radial] Respiratory 20 Rate Blood Pressure Blood Pressure 153/70 [Left Radial Artery] O2 Sat by Pulse 99 Oximetry - Labs CBC & Chem 7: 01/04/17 15:40 01/04/17 15:40
--- NOTE | 2017-01-06 16:47 | Vascular Lab Report ---
CAROTID DUPLEX STUDY: RIGHT PSVEDV CCA PROX:[id number] CCA DIST:5016 ICA PROX:2812 ICA MID:4722 ICA DIST:6729 ECA: 5111 VERT: 32 10 LEFT PSVEDV CCA PROX:8019 CCA DIST:3814 ICA PROX:5023 ICA MID:6719 ICA DIST:5924 ECA: 5614 VERT: 25 7 REASON FOR EXAM: Stroke. COMMENTS ON THE RIGHT: Doppler frequency analysis is consistent with 16 to 49 percent diameter reduction of the internal carotid artery. Minimal amount of plaque is seen. The common carotid artery is patent. The external carotid artery is patent. The vertebral artery has antegrade flow. COMMENTS ON THE LEFT: Doppler frequency analysis is consistent with 16 to 49 percent diameter reduction of the internal carotid artery. Minimal amount of plaque is seen. The common carotid artery is patent. The external carotid artery is patent. The vertebral artery has antegrade flow. IMPRESSION: Less than 50% diameter reduction in the internal carotid arteries bilaterally. Consider repeat carotid artery duplex in 12 months.
[2017-01-06] MEDS: ELIQUIS PO SCH (21:51)
[2017-01-07 04:14] LABS: Hematocrit 42.5 % (35.5-45.6); Mean Corpuscular HGB Conc 33 % (32-34); Mean Corpuscular Hemoglobin 30 pg (28-32); Mean Corpuscular Volume 91 fl (84-94); Red Blood Count 4.68 M/mm3 (3.65-5.03); Red Cell Distribution Width 13.6 % (13.2-15.2); White Blood Count 6.3 K/mm3 (4.5-11.0)
[2017-01-07 04:29] LABS: Platelet Count 95 K/mm3 (140-440)
[2017-01-07] MEDS: LOPRESSOR PO SCH ×2 (05:55→09:49)
[2017-01-07] MEDS: NACL 0.9% 1000 ML 1,000 ML IV SCH (08:39)
[2017-01-07] MEDS ORDERED: APRESOLINE IV ONE (10:00)
[2017-01-07] MEDS: HABITROL TD SCH (10:23)
[2017-01-07] MEDS: ELIQUIS PO SCH (10:23)
[2017-01-07] MEDS: ASPIRIN PO SCH (10:23)
[2017-01-07] MEDS: COLACE PO SCH (10:23)
[2017-01-07] MEDS: PEPCID PO SCH (10:24)
--- NOTE | 2017-01-07 10:39 | Progress Note ---
Assessment and Plan Assessment: Transient atrial fibrillation with CVR --> SR Acute CVA HTN H/o DVT and PE, s/p IVC filter placement Dyslipidemia / hypertriglyceridemia Tobacco use - cessation encouraged Plan: Currently stable cardiac status. Per neurology, cont ASA 325mg Daily & transition AP therapy to therapeutic AC approx 7 days after stroke onset i.e. after 01/10 if pt remains clinically stable to minimize risk of ICH. Plan to resume eliquis on 01/10/2017. Consider ischemic evaluation (lexiscan MPI) as OP for risk stratification. Pt may discharge home from cardiology standpoint. Recommend follow up in our office with Danyelle Wynn NP, within 2 weeks of hospital discharge ([phone]). Assessment and plan reviewed with pt at bedside. The patient has been seen in conjunction with Dr. Tavarez who agrees with the assessment and plan of care. Subjective Date of service: 01/07/17 Principal diagnosis: CVA; AFib Interval history: Pt resting comfortably in bed, no complaints. remains in SR. States he is ready to go home. Objective Last Vital Signs Temp 97.8 F 01/07/17 08:49 Pulse 56 L 01/07/17 10:22 Resp 20 01/07/17 08:49 BP 179/79 01/07/17 10:22 Pulse Ox 97 01/07/17 08:49 - Physical Examination General: Appears Well, No Apparent Distress HEENT: Positive: PERRL, Normocephaly, Mucus Membranes Moist Neck: Positive: neck supple, trachea midline Cardiac: Positive: Reg Rate and Rhythm, S1/S2 Lungs: Positive: clear to auscultation Neuro: Positive: Grossly Intact, Cranial Nerve 2-12 Intact Abdomen: Positive: Unremarkable, Soft, Active Bowel Sounds. Negative: Tender Skin: Positive: Clear. Negative: Rash, Wound Musculoskeletal: No Fluid Collection, No Pain, Normal Range of Motion Extremities: Present: upper extr. pulses, lower extr. pulses. Absent: edema - Labs and Meds CBC 01/07/17 Range/Units 03:36 WBC 6.3 (4.5-11.0) K/mm3 RBC 4.68 (3.65-5.03) M/mm3 Hgb 14.0 (11.8-15.2) gm/dl Hct 42.5 (35.5-45.6) % Plt Count 95 L (140-440) K/mm3 - Imaging and Cardiology EKG: report reviewed, image reviewed Echo: report reviewed - Telemetry EKG Rhythm: Sinus Rhythm
--- NOTE | 2017-01-07 10:55 | Discharge Summary ---
Providers - Providers Date of Admission: 01/04/17 18:46 Date of discharge: 01/07/17 Attending physician: ALEXIS SALDAÑA 01/07/17 09:40 Occupational Therapy Evaluate and Treat [CONS] Routine Comment: CVA Reason For Exam: EVAL & TREAT Physical Therapy Evaluation and Treat [CONS] Routine Comment: CVA Reason For Exam: evAL & TREAT Primary care physician: RESEARCH ENVIRONMENTAL ENGINEER Hospitalization Condition: Stable Hospital course: Discharge Diagnosis: Acute b/l CVA with left fascia droop - Patient came to the ED after window period for TPA passed - MRI/MRA, carotid Doppler, echo, CTA ordered - MRI showed b/l CVA, 2d echo showed preserved EF - Patient is on aspirin, statin - Neurology following - started on eliquis by senior ui software engineer Miguelito Plasencia fib -rate Controlled -Patient will be continued on therapeutic Lovenox -Cardiology recommendation appreciated History of PE - Patient didn't take any anti-coagulation for the last 10 years - Patient has Shaq filter placed 20 years ago DVT prophylaxis -on eliquis now Disposition: DC-01 TO HOME OR SELFCARE Time spent for discharge: 32 minutes Exam - Constitutional Vitals: Temp Pulse Resp BP Pulse Ox 97.8 F 56 L 20 179/79 97 01/07/17 08:49 01/07/17 10:22 01/07/17 08:49 01/07/17 10:22 01/07/17 08:49 Plan Activity: advance as tolerated, other (No restriction to car/bus) Weight Bearing Status: Weight Bear as Tolerated Diet: low fat, low salt Additional Instructions: f/u with cardiology to have ischemic evaluation as outpatient Follow up with: PRIMARY CARE, [Primary Care Provider] - 3-5 Days Prescriptions: AtorvaSTATin [Lipitor] 40 mg PO QHS #30 tablet Apixaban [Eliquis] 5 mg PO BID 60 Days Aspirin EC [Aspirin Enteric Coated TAB] 81 mg PO QDAY #3 tablet. Metoprolol [Lopressor TAB] 25 mg PO BID #60 tablet
[2017-01-07 13:52] VITALS: BP 151/92
== END 2017-01-07 14:30 | disposition home or self-care (01) | DRG 65 ==
LOC: ED 15:43 → 4A 18:46
PROVIDERS: ADMIT Internal Medicine; ATTEND Internal Medicine
DX: I63.9 Cerebral infarction, unspecified (principal); Z92.82 Status post administration of tPA (rtPA) in a different facility within the last 24 hours prior to admission to current facility; R29.810 Facial weakness; F17.210 Nicotine dependence, cigarettes, uncomplicated; I48.91 Unspecified atrial fibrillation; E78.1 Pure hyperglyceridemia; E78.5 Hyperlipidemia, unspecified; I10 Essential (primary) hypertension; Z86.711 Personal history of pulmonary embolism; Z86.718 Personal history of other venous thrombosis and embolism
CPT/HCPCS: 36415; 70450; 70496; 70498; 70544; 70551; 80048; 80061; 82962; 83735; 84439; 84443; 84484; 85007; 85025; 85027; 85610; 85670; 85730; 93005; 93010; 93306; 93880; 99406; A9270-GY; J0360; J1650; J7030; J7050; Q9967